=== PATIENT | female | born 1970 | race Caucasian/White ===

== ENCOUNTER 2017-02-28 10:17 | Emergency (ER) | payer MEDICARE, OTHER ==
[~2017-02-28] VITALS: Ht 170.2 cm; Wt 62.7 kg
[~2017-02-28 10:17] MED LIST: CITA20TA9 PO; DIVA500T35 PO; DOCU250C91 PO; GABA-531 PO; HEPAR25KIV SQ; LITH300CRT PO; OLAN10TA3 PO; PANT40TA25 PO; TRAZ-147 PO
[2017-02-28 11:03] VITALS: BP 123/83
[2017-02-28] MEDS ORDERED: KETOROLAC TROMETHAMINE 30 MG/ML VIAL IM ONE (12:15)
[2017-02-28] MEDS ORDERED: LORazepam 2 MG/ML VIAL IM ONE (13:00)
== END 2017-02-28 14:19 | disposition home or self-care (01) ==
LOC: EMS 10:22
DX: M25.512 Pain in left shoulder (principal); M54.2 Cervicalgia
CPT/HCPCS: 96372; 99284; J1885; J2060

== ENCOUNTER 2017-02-28 20:47 | Inpatient (IN) | payer MEDICARE, MEDICAID ==
[~2017-02-28] VITALS: Ht 170.2 cm; Wt 63.0 kg
[2017-02-28 21:33] LABS: BASOPHILS % (AUTO) 0.5 % (0.0-2.0); EOSINOPHILS % (AUTO) 0.5 % (1.0-6.0); HEMOGLOBIN 10.8 g/dL (12.0-16.0); LYMPHOCYTES # (AUTO) 1.2 K/uL (1.0-4.8); LYMPHOCYTES % (AUTO) 8.3 % (22.0-44.0); MEAN CORPUSCULAR HEMOGLOBIN 30.3 pg (26.0-34.0); MEAN CORPUSCULAR HGB CONC 31.9 G/dL (31.0-37.0); MEAN CORPUSCULAR VOLUME 95 fL (80-100); MONOCYTES # (AUTO) 1.1 K/uL (0.1-1.0); MONOCYTES % (AUTO) 7.6 % (2.0-9.0); NEUTROPHILS # (AUTO) 12.1 K/uL (1.8-7.7); NEUTROPHILS % (AUTO) 83.1 % (40.0-70.0); PLATELET COUNT (AUTO) 299 K/uL (150-450); RED BLOOD CELL COUNT(AUTO) 3.57 MIL/uL (4.00-5.20); RED CELL DISTRIBUTION WIDTH 14.7 % (11.5-14.5); WHITE BLOOD COUNT (AUTO) 14.5 K/uL (4.5-11.0)
[2017-02-28 21:44] LABS: ANION GAP 10 mmol/L (8-16); CARBON DIOXIDE 24 mmol/L (22-29); CHLORIDE 106 mmol/L (98-107); CREATININE 0.99 mg/dL (0.60-1.30); GLOMERULAR FILTR. RATE CALC 60 mL/min (>60); POTASSIUM 3.4 mmol/L (3.5-5.1); SODIUM SERUM 140 mmol/L (136-145); UREA NITROGEN, BLOOD 37 mg/dL (7-18)
[2017-02-28 21:49] LABS: ALANINE AMINOTRANSFERASE 42 U/L (12-78); ALBUMIN 3.7 g/dL (3.4-5.0); ASPARTATE AMINOTRANSFERASE 54 U/L (15-37); BILIRUBIN,TOTAL 0.9 mg/dL (0.1-1.0); TOTAL PROTEIN, SERUM 6.9 g/dL (6.4-8.2)
[2017-03-01 01:20] LABS: APPEARANCE,URINE CLOUDY (CLEAR); GLUCOSE, URINE (UA) NEGATIVE (NEGATIVE); KETONES,URINE >=80 mg/dL (NEGATIVE); LEUKOCYTE ESTERASE ,URINE SMALL (NEGATIVE); OCCULT BLOOD,URINE NEGATIVE (NEGATIVE); PH,URINE 5.5 (5.0-8.0); PROTEIN,URINE POS 1+ (NEGATIVE)
[2017-03-01 01:22] LABS: ADD UA MICROSCOPIC YES
[2017-03-01 02:15] LABS: RBC,URINE 0-2 /HPF (0-2); SQUAMOUS EPITHELIAL CELL,UR Few /LPF (None Seen)
[2017-03-01 02:25] VITALS: BP 107/60
[2017-03-01] MEDS: CIPROFLOXACIN HCL 250 MG TABLET PO SCH ×2 (08:01→16:16)
[2017-03-01] MEDS ORDERED: ACETAMINOPHEN 325 MG TABLET PO PRN ×2 (08:15→17:15)
[2017-03-01] MEDS ORDERED: LORazepam 2 MG/ML VIAL IM ONE (08:30)
[2017-03-01] MEDS ORDERED: HALOPERIDOL LACTATE 5 MG/ML VIAL IM ONE (08:30)
[2017-03-01] MEDS ORDERED: DiphenhydrAMINE HCL 50 MG/ML VIAL IM ONE (08:30)
[2017-03-01] MEDS ORDERED: PROMETHAZINE HCL 25 MG TABLET PO PRN (17:15)
[2017-03-01] MEDS ORDERED: MAGNESIUM HYDROXIDE SUSPENSION 30 ML UDCUP PO PRN (17:15)
[2017-03-01] MEDS ORDERED: LOPERAMIDE HCL 2 MG CAPSULE PO PRN (17:15)
[2017-03-01] MEDS ORDERED: GuaiFENesin/D-METHORPHAN [SUGAR-FREE] 200-20MG/10 ML SYRUP UDCUP PO PRN (17:15)
[2017-03-01] MEDS ORDERED: MAG HYDROX/AL HYDROX/SIMETH ES 30 ML SUSPENSION UDCUP PO PRN (17:15)
[2017-03-01] MEDS ORDERED: TUBERCULIN, PURIFIED PROTEIN DERIVATIVE 5 TU/0.1 ML SYG ID ONE (17:15)
[2017-03-01] MEDS: GABAPENTIN 100 MG CAPSULE PO SCH (20:51)
[2017-03-01] MEDS: OLANZapine 10 MG RAPDIS TABLET PO SCH (20:52)
[2017-03-02 06:37] LABS: CHOL/HDL RATIO 2.1 (3.9-5.7)
[2017-03-02 08:00] VITALS: BP 111/60
[2017-03-02] MEDS: FOLIC ACID 1 MG TABLET PO SCH (08:31)
[2017-03-02] MEDS: MULTIVITAMINS WITH MINERALS, THERAPEUTIC TABLET PO SCH (08:31)
[2017-03-02] MEDS: DULoxetine HCL 20 MG CAPSULE PO SCH (08:31)
[2017-03-02] MEDS: CIPROFLOXACIN HCL 250 MG TABLET PO SCH ×2 (08:31→16:20)
[2017-03-02] MEDS: GABAPENTIN 100 MG CAPSULE PO SCH ×4 (08:32→20:13)
[2017-03-02] MEDS: THIAMINE HCL 100 MG TABLET PO SCH ×2 (08:32→16:20)
[2017-03-02] MEDS: HALOPERIDOL 5 MG TABLET PO PRN (10:46)
[2017-03-02] MEDS: LORazepam 2 MG TABLET PO PRN (10:46)
[2017-03-02 16:10] VITALS: BP 110/61
[2017-03-02] MEDS: OLANZapine 10 MG RAPDIS TABLET PO SCH (20:13)
[2017-03-03] MEDS: MULTIVITAMINS WITH MINERALS, THERAPEUTIC TABLET PO SCH (08:43)
[2017-03-03] MEDS: DULoxetine HCL 20 MG CAPSULE PO SCH (08:43)
[2017-03-03] MEDS: CIPROFLOXACIN HCL 250 MG TABLET PO SCH ×2 (08:43→16:14)
[2017-03-03] MEDS: FOLIC ACID 1 MG TABLET PO SCH (08:43)
[2017-03-03] MEDS: THIAMINE HCL 100 MG TABLET PO SCH ×2 (08:43→16:14)
[2017-03-03] MEDS: GABAPENTIN 100 MG CAPSULE PO SCH ×5 (08:43→20:33)
[2017-03-03] MEDS ORDERED: IBUPROFEN 600 MG TABLET PO PRN (11:30)
[2017-03-03] MEDS: LORazepam 2 MG TABLET PO PRN (12:47)
[2017-03-03 13:24] VITALS: BP 114/78
[2017-03-03] MEDS: NICOTINE 21 MG/24 HOUR PATCH TD SCH (13:40)
[2017-03-03] MEDS ORDERED: DIAZEPAM 10 MG TABLET PO ONE (17:00)
[2017-03-03] MEDS: OLANZapine 10 MG RAPDIS TABLET PO SCH (20:33)
[2017-03-03] MEDS: HydrOXYzine PAMOATE 50 MG CAPSULE PO PRN (21:28)
[2017-03-03] MEDS: DIAZEPAM 10 MG TABLET PO PRN (23:59)
[2017-03-04] MEDS: ZOLPIDEM TARTRATE 10 MG TABLET PO PRN (00:01)
[2017-03-04 03:43] VITALS: BP 116/70
[2017-03-04 08:00] VITALS: BP 103/64
[2017-03-04] MEDS: DULoxetine HCL 30 MG CAPSULE PO SCH (08:15)
[2017-03-04] MEDS: GABAPENTIN 100 MG CAPSULE PO SCH ×4 (08:16→20:19)
[2017-03-04] MEDS: MULTIVITAMINS WITH MINERALS, THERAPEUTIC TABLET PO SCH (08:17)
[2017-03-04] MEDS: FOLIC ACID 1 MG TABLET PO SCH (08:17)
[2017-03-04] MEDS: THIAMINE HCL 100 MG TABLET PO SCH ×2 (08:17→16:07)
[2017-03-04] MEDS: DIAZEPAM 10 MG TABLET PO PRN ×5 (08:17→22:11)
[2017-03-04] MEDS: NICOTINE 21 MG/24 HOUR PATCH TD SCH (08:18)
[2017-03-04] MEDS ORDERED: NICOTINE 21 MG/24 HOUR PATCH TD SCH (09:00)
[2017-03-04] MEDS: HALOPERIDOL 5 MG TABLET PO PRN ×2 (10:40→14:41)
[2017-03-04] MEDS: HydrOXYzine PAMOATE 50 MG CAPSULE PO PRN ×2 (10:40→14:41)
[2017-03-04 16:22] VITALS: BP 112/60
[2017-03-04] MEDS: OLANZapine 5 MG RAPDIS TABLET PO SCH (20:19)
[2017-03-04 22:09] VITALS: BP 112/68
[2017-03-05] MEDS: GABAPENTIN 100 MG CAPSULE PO SCH ×4 (08:27→20:25)
[2017-03-05] MEDS: MULTIVITAMINS WITH MINERALS, THERAPEUTIC TABLET PO SCH (08:27)
[2017-03-05] MEDS: DULoxetine HCL 30 MG CAPSULE PO SCH (08:27)
[2017-03-05] MEDS: FOLIC ACID 1 MG TABLET PO SCH (08:27)
[2017-03-05] MEDS: THIAMINE HCL 100 MG TABLET PO SCH ×2 (08:28→16:15)
[2017-03-05] MEDS: NICOTINE 21 MG/24 HOUR PATCH TD SCH (08:28)
[2017-03-05] MEDS: DIAZEPAM 10 MG TABLET PO PRN ×3 (10:29→21:19)
[2017-03-05 10:34] VITALS: BP 113/67
[2017-03-05] MEDS: HydrOXYzine PAMOATE 50 MG CAPSULE PO PRN (13:45)
[2017-03-05 17:11] VITALS: BP 124/70
[2017-03-05] MEDS: OLANZapine 5 MG RAPDIS TABLET PO SCH (20:25)
[2017-03-06] MEDS: DIAZEPAM 10 MG TABLET PO PRN ×5 (01:21→21:05)
[2017-03-06 01:23] VITALS: BP 151/76
[2017-03-06] MEDS: MULTIVITAMINS WITH MINERALS, THERAPEUTIC TABLET PO SCH (08:44)
[2017-03-06] MEDS: THIAMINE HCL 100 MG TABLET PO SCH ×2 (08:44→16:02)
[2017-03-06] MEDS: GABAPENTIN 100 MG CAPSULE PO SCH ×4 (08:44→20:13)
[2017-03-06] MEDS: FOLIC ACID 1 MG TABLET PO SCH (08:44)
[2017-03-06] MEDS: DULoxetine HCL 30 MG CAPSULE PO SCH (08:44)
[2017-03-06] MEDS: NICOTINE 21 MG/24 HOUR PATCH TD SCH (08:50)
[2017-03-06 09:29] VITALS: BP 105/60
[2017-03-06 17:09] VITALS: BP 106/63
[2017-03-06] MEDS: OLANZapine 5 MG RAPDIS TABLET PO SCH (20:13)
[2017-03-06] MEDS: ZOLPIDEM TARTRATE 10 MG TABLET PO PRN (21:37)
[2017-03-07] MEDS: DIAZEPAM 10 MG TABLET PO PRN ×2 (03:12→07:53)
[2017-03-07 03:20] VITALS: BP 124/71
[2017-03-07] MEDS: THIAMINE HCL 100 MG TABLET PO SCH (07:53)
[2017-03-07] MEDS: FOLIC ACID 1 MG TABLET PO SCH (07:53)
[2017-03-07] MEDS: MULTIVITAMINS WITH MINERALS, THERAPEUTIC TABLET PO SCH (07:53)
[2017-03-07] MEDS: DULoxetine HCL 30 MG CAPSULE PO SCH (07:53)
[2017-03-07] MEDS: GABAPENTIN 100 MG CAPSULE PO SCH (07:53)
[2017-03-07] MEDS: NICOTINE 21 MG/24 HOUR PATCH TD SCH (07:58)
[2017-03-07 08:02] VITALS: BP 120/64
[2017-03-07] MEDS ORDERED: DULO30CA2 PO (10:20)
[2017-03-07] MEDS ORDERED: GABA-529 PO (10:21)
[2017-03-07] MEDS ORDERED: OLAN7.5T2 PO (10:23)
[2017-03-07] MEDS ORDERED: ACAM333T7 PO (10:25)
[2017-03-07] MEDS ORDERED: ACAMPROSATE CALCIUM 333 MG DR TABLET PO SCH (13:00)
== END 2017-03-07 12:50 | disposition home or self-care (01) | DRG 885 ==
LOC: EMS 20:57 → 3EX 22:30
PROVIDERS: ADMIT Psychiatry & Neurology Psychiatry; ATTEND Psychiatry & Neurology Psychiatry
DX: F25.0 Schizoaffective disorder, bipolar type (principal); G93.41 Metabolic encephalopathy; N39.0 Urinary tract infection, site not specified; F19.20 Other psychoactive substance dependence, uncomplicated; F17.200 Nicotine dependence, unspecified, uncomplicated; J44.9 Chronic obstructive pulmonary disease, unspecified; G89.4 Chronic pain syndrome; Z91.14 Patient's other noncompliance with medication regimen; Z59.0 Homelessness; M54.2 Cervicalgia; M25.519 Pain in unspecified shoulder
CPT/HCPCS: 87086; 99285; G0480; J1200; J1630; J2060

== ENCOUNTER 2022-03-29 11:31 | Emergency (ER) | payer MEDICARE, OTHER ==
[~2022-03-29] VITALS: Ht 172.7 cm; Wt 59.1 kg
[~2022-03-29 11:31] MED LIST changes: +ACAM333T7 PO; -CITA20TA9 PO; -DIVA500T35 PO; -DOCU250C91 PO; +DULO-114 PO; +GABA-1216 PO; -GABA-531 PO; -HEPAR25KIV SQ; -LITH300CRT PO; -OLAN10TA3 PO; +OLAN7.5T22 PO; -PANT40TA25 PO; -TRAZ-147 PO
[2022-03-29 11:52] VITALS: BP 112/97
[2022-03-29] MEDS ORDERED: PERTUSS(ACELL),DIPH,TET VAC/PF 0.5 ML SYRINGE IM. ONE (12:15)
[2022-03-29] MEDS ORDERED: ACETAMINOPHEN 500 MG TABLET PO ONE (12:15)
[2022-03-29] MEDS ORDERED: CEPH-558 PO (13:59)
== END 2022-03-29 14:17 | disposition home or self-care (01) ==
LOC: EMS 11:31
DX: T24.002A Burn of unspecified degree of unspecified site of left lower limb, except ankle and foot, initial encounter (principal); T31.0 Burns involving less than 10% of body surface; F17.210 Nicotine dependence, cigarettes, uncomplicated; X08.8XXA Exposure to other specified smoke, fire and flames, initial encounter; Y93.89 Activity, other specified; Y92.89 Other specified places as the place of occurrence of the external cause; Y99.8 Other external cause status
CPT/HCPCS: 90471; 90715; 99283